=== PATIENT | female | born 1980 | race Caucasian/White ===

== ENCOUNTER 2021-01-23 15:03 | Observation (INO) | payer BC, OTHER ==
[~2021-01-23] VITALS: Ht 157.5 cm; Wt 99.8 kg
[2021-01-23 15:13] VITALS: BP 137/79
[2021-01-23 15:34] LABS: ABSOLUTE NEUTROPHILS 10.7 thou/uL (1.4-8.2); BASOPHILS 0.9 % (0.0-2.0); EOSINOPHILS 1.6 % (0.0-3.0); HEMATOCRIT 35.5 % (37.0-47.0); HEMOGLOBIN 10.9 gm/dL (12.0-15.0); LYMPHOCYTES 12.8 % (24.0-44.0); MCH 23.2 pg (26.0-34.0); MCHC 30.8 g/dL (28.0-37.0); MCV 75.2 fL (80.0-100.0); MONOCYTES 5.2 % (1.0-8.0); PLATELET COUNT 408 thou/uL (150-400); POLYS 79.5 % (36.0-66.0); RBC 4.72 mil/uL (4.20-5.00); RDW 18.1 % (10.5-14.5); WBC 13.5 thou/uL (4.0-11.0)
[2021-01-23] MEDS ORDERED: PROAIR HFA8.5 GM INH (15:35)
[2021-01-23 15:50] LABS: CALCIUM 8.9 mg/dL (8.5-10.1); CREATININE 0.7 mg/dL (0.6-1.0)
[2021-01-23 17:14] LABS: BE(vivo) -0.6 mmol/L (-2 to +3); HCO3 22.7 mmol/L (22.0-26.0); PCO2 32.9 mmHg (35.0-45.0); pH 7.456 (7.360-7.450); sO2 90.6 % (92.0-98.0)
[2021-01-23 17:15] LABS: PO2 55.2 mmHg (80.0-100.0)
[2021-01-23 17:43] LABS: ANISOCYTOSIS 2+; HYPOCHROMASIA 2+; MICROCYTES 2+
[2021-01-23 18:05] VITALS: BP 137/79
[2021-01-23 19:20] VITALS: BP 136/71
[2021-01-23 20:30] VITALS: BP 136/90
[2021-01-23] MEDS ORDERED: WELLBUTRIN SR150 MG PO (21:18)
[2021-01-23] MEDS ORDERED: ADVAIR 250-501 EACH INH (21:18)
--- NOTE | 2021-01-24 02:30 | NUR ---
PT ADMITTED TO ROOM 218 AROUND 2029, ALERT AND ORIENTEDX4, ADMISSION ASSESSMENT. HX AND EDUCATION COMPLETED, SR ON TELE, C/O BACK PAIN EXERCEBATED BY COUGH, COUGH MEDICINE GIVEN, NO FURTHER COMPLAINS, ASSESSMENTS CHARTED, ON 2L OF O2VIA NASAL CANULLA, 02SATS STABLE, PLAN FOR PULMONARY CONSULT AND ABX, POC INITIATED, WILL CONTINUE TO MONITOR
[2021-01-24 04:01] LABS: HEMATOCRIT 32.5 % (37.0-47.0); HEMOGLOBIN 10.3 gm/dL (12.0-15.0); MCH 23.8 pg (26.0-34.0); MCHC 31.8 g/dL (28.0-37.0); MCV 74.8 fL (80.0-100.0); RBC 4.34 mil/uL (4.20-5.00); RDW 18.1 % (10.5-14.5); WBC 9.4 thou/uL (4.0-11.0)
[2021-01-24 04:45] VITALS: BP 145/79
[2021-01-24 08:33] VITALS: BP 141/69
[2021-01-24 11:25] VITALS: BP 155/63
[2021-01-24] MEDS ORDERED: AZITHROMYCIN500 MG PO (11:34)
[2021-01-24] MEDS ORDERED: PREDNISONE 20 M20 M1 PO (11:34)
--- NOTE | 2021-01-24 11:35 | EKG ---
[address] [address] ELECTROCARDIOGRAM REPORT Name: NICA CEDENO Room #: 218-P ADM IN M.R.#: [id number] Admission: 01/23/21 Attend Phys: Bowen Dickson MD Discharge: Date of : 80 Report #: [id number] [facility] ED Test Date: 2021-01-23 Test Time: 16:07:42 Pat Name: NICA CEDENO Department: Room: 218 P Gender: F Author: MARY : 1980 Requested By: Kanu Perez Order Number: [id number] : Zeb Hua Measurements Intervals [place] Rate: 84 P: 65 DE: 152 QRS: 68 QRSD: 89 T: 57 QT: 371 QTc: 439 Interpretive Statements Sinus rhythm Baseline wander in lead(s) V2 No previous ECG available for comparison Electronically Signed On 01-24-2021 11:34:50 [employer] by Zeb Hua [email or web address] <ELECTRONICALLY SIGNED> By: Zeb Hua MD, [facility] 01/24/21 1134 1607 1607 Zeb Hua MD, FACC /EPI
[2021-01-24 13:04] VITALS: BP 155/63
--- NOTE | 2021-01-24 13:30 | NUR ---
ASSESSMENT CHARTED - MEDS PER PA - OLVIN DIET AND FLUIDS. PT WITH LOOSE COUGH - GIVEN GUIFFENISN WITH GOOD RELIEF. UP AD RANJAN IN ROOM - NO CO'S OF PAIN OR NAUSEA. PT HOME THIS AFTERNOON - INSTURCTION RE HOME MEDS/ CARE / FOLLOW UP GIVEN TO PATIENT AND SPOUSE. STATED UNDERSTANDING ON INSTRUCTION GIVEN. LEFT UNIT VIA WHEELCHAIR - HOME VIA PVT VEHICLE ACCOMPANIED BY HSVIVIAN NO CO'S AT TIME OF D/C.
== END 2021-01-24 13:25 | disposition home or self-care (01) ==
LOC: ER 15:03 → 2N 18:28 → EROBS 18:28 → 2N 18:28
PROVIDERS: Emergency Medicine; Nurse Practitioner Family; ADMIT Internal Medicine; ATTEND Internal Medicine
DX: J45.901 Unspecified asthma with (acute) exacerbation (principal); Z20.822 Contact with and (suspected) exposure to COVID-19; J96.01 Acute respiratory failure with hypoxia; F41.9 Anxiety disorder, unspecified; F17.210 Nicotine dependence, cigarettes, uncomplicated; Z79.899 Other long term (current) drug therapy; Z23 Encounter for immunization
CPT/HCPCS: 10081